=== PATIENT | female | born 1985 | race African-American/Black ===

== ENCOUNTER 2021-04-19 11:24 | Emergency (ER) | payer MEDICARE, SELFPAY | END 2021-04-19 13:15 | disposition home or self-care (01) | LOC: CSHERS 11:24 | DX: B34.9 Viral infection, unspecified (principal) | CPT/HCPCS: 71045 ==

== ENCOUNTER 2021-11-13 07:13 | Emergency (ER) | payer MEDICARE, MEDICAID ==
[2021-11-13] MEDS ORDERED: Dexamethasone 10 MG/ML VIAL ONE (07:54)
[2021-11-13] MEDS ORDERED: Metoclopramide HCl 10 MG TAB ONE (07:54)
[2021-11-13] MEDS ORDERED: Dexamethasone 10 MG/ML VIAL SLOW IVP SCH (08:00)
[2021-11-13] MEDS ORDERED: Metoclopramide HCl 10 MG TAB PO SCH (08:00)
== END 2021-11-13 07:58 | disposition home or self-care (01) ==
LOC: CSHERS 07:13
DX: R51.9 Headache, unspecified (principal); Z79.899 Other long term (current) drug therapy
CPT/HCPCS: 99283; J1100

== ENCOUNTER 2021-12-05 22:53 | Emergency (ER) | payer MEDICARE, MEDICAID | END 2021-12-06 01:52 | disposition left against medical advice (07) | LOC: CSHERS 22:53 | DX: Z53.21 Procedure and treatment not carried out due to patient leaving prior to being seen by health care provider (principal) ==

== ENCOUNTER 2021-12-06 06:28 | Emergency (ER) | payer MEDICARE, MEDICAID ==
[2021-12-06] MEDS ORDERED: Dexamethasone 10 MG/ML VIAL ONE (07:18)
[2021-12-06 08:35] LABS: BHCG - Serum Negative (NEGATIVE); Pregs Control Background? CLEAR/WHITE (CLR/WHITE); Pregs Control Bar Appear? YES (CONTROL BAR)
[2021-12-06 08:42] LABS: ALT (SGPT) 38 U/L (8-55); AST (SGOT) 27 U/L (5-34); Albumin 3.8 g/dL (3.5-5.0); Alkaline Phosphatase 77 U/L (40-110); Anion Gap 13 mmol/L (10-20); BUN (Urea Nitrogen) 11 mg/dL (7.0-18.7); Bilirubin, Total 0.4 mg/dL (0.2-1.2); Calc. Creatinine Clearance 0 mL/min (70-130); Calcium 9.3 mg/dL (7.8-10.44); Carbon Dioxide 27 mmol/L (22-29); Chloride 102 mmol/L (98-107); Estimated GFR 80; Glucose 96 mg/dL (70-105); Potassium 3.9 mmol/L (3.5-5.1); Protein, Total 7.8 g/dL (6.0-8.3); Sodium 138 mmol/L (136-145)
[2021-12-06 08:45] LABS: Hemoglobin 13.2 g/dL (12.0-15.5); Mean Corpuscular HGB CONC 34.2 g/dL (32.0-36.0); Mean Corpuscular Hemoglobin 29.9 pg (27.0-33.0); Mean Corpuscular Volume 87.5 fl (81.6-98.3); Mean Platelet Volume 10.5 fl (7.4-10.4); Platelet Count 340 10x3/uL (150-450); RBC Distribution Width 12.7 % (11.5-14.5); Red Blood Cell (RBC) Count 4.41 10x6/uL (3.90-5.03); White Blood Cell (WBC) Count 4.1 10x3/uL (3.5-10.5)
[2021-12-06 09:27] LABS: Band 2 % (5-11); Eosinophils 2 % (0-10); Monocytes 15 % (0-10)
[2021-12-06 09:28] LABS: Lymphocytes 20 % (21-51); Neutrophil 57 % (42-75)
[2021-12-06 09:29] LABS: MDiff Complete? YES; Platelet Morphology Comment Appears Adequate; Reactive Lymphocytes 4 % (0-10)
[2021-12-06 09:30] LABS: RBC Morphology Normal
== END 2021-12-06 09:31 | disposition home or self-care (01) ==
LOC: CSHERS 06:28
DX: U07.1 COVID-19 (principal); I49.1 Atrial premature depolarization; J03.90 Acute tonsillitis, unspecified
CPT/HCPCS: 71045; 80053; 84484; 84703; 85025; 85379; 87081; 87430; 93005; U0003; U0005; 36415; J1100

== ENCOUNTER 2022-07-18 10:47 | Emergency (ER) | payer MEDICAID, MEDICARE ==
[2022-07-18 11:39] LABS: #Eosinphils 0.2 10x3/uL (0.0-0.5); #Monocytes 0.6 10x3/uL (0.0-1.1); #Neutrophils 3.6 10x3/uL (1.5-8.4); %Basophils 0.6 % (0.0-2.0); %Eosinophils 2.2 % (0.0-6.0); %Lymphocytes 38.2 % (18.0-47.0); %Monocytes 8.7 % (0.0-10.0); Hemoglobin 12.8 g/dL (12.0-15.5); Mean Corpuscular HGB CONC 32.8 g/dL (32.0-36.0); Mean Corpuscular Hemoglobin 29.1 pg (27.0-33.0); Mean Corpuscular Volume 88.6 fl (81.6-98.3); Mean Platelet Volume 10.4 fl (7.4-10.4); Platelet Count 382 10x3/uL (150-450); White Blood Cell (WBC) Count 7.3 10x3/uL (3.5-10.5)
[2022-07-18 11:50] LABS: Bilirubin Neg (Negative); Blood, Urine 250 (Negative); Clarity Slightly Cloudy (Clear); Glucose, Urine (Dipstick) Normal (Negative); Ketone, Urine Negative (Negative); Leukocyte 500 (Negative); Nitrite Negative (Negative); Protein, Urine (Dipstick) 100 mg/dl (Neg-Trace); Urobilinogen Normal mg/dL (Less than 2); pH, Urine 6.5 (5.0-9.0)
[2022-07-18 11:53] LABS: Pregnancy Test - Urine (BHCG) Negative (Negative); Pregu Control Background? CLEAR/WHITE (CLR/WHITE); Pregu Control Bar Appear? YES (CONTROL BAR)
[2022-07-18 11:56] LABS: Amphetamine Not Detected (NotDetected); Barbiturates Screen Not Detected (NotDetected); Benzodiazepine Screen Not Detected (NotDetected); Cocaine Metabolite Screen Not Detected (NotDetected); Methadone Not Detected (NotDetected); Methamphetamine Not Detected (NotDetected); Opiate Screen Not Detected (NotDetected); Oxycodone Screen Not Detected (NotDetected); Phencyclidine (PCP) Not Detected (NotDetected); THC/Cannabinoid Screen Not Detected (NotDetected); Tricyclic Screen Not Detected (NotDetected)
[2022-07-18 12:02] LABS: Trichomonas/HPF 1+ HPF (None Seen)
[2022-07-18 12:03] LABS: Bacteria/HPF 2+ HPF (None Seen)
[2022-07-18 12:05] LABS: Acetaminophen Less than 10.0 mcg/mL (10.0-30.0); Alcohol Less than 10 mg/dL (Less than 10); Salicylate Less than 8.0 mg/dL (15.0-30.0)
[2022-07-18 12:06] LABS: ALT (SGPT) 34 U/L (8-55); AST (SGOT) 33 U/L (5-34); Albumin 4.4 g/dL (3.5-5.0); Alkaline Phosphatase 77 U/L (40-110); Anion Gap 14 mmol/L (10-20); BUN (Urea Nitrogen) 15 mg/dL (7.0-18.7); Bilirubin, Total 0.3 mg/dL (0.2-1.2); Calc. Creatinine Clearance 0 mL/min (70-130); Calcium 9.9 mg/dL (7.8-10.44); Carbon Dioxide 25 mmol/L (22-29); Chloride 102 mmol/L (98-107); Estimated GFR 75; Globulin 4.2 g/dL (2.4-3.5); Glucose 106 mg/dL (70-105); Potassium 4.1 mmol/L (3.5-5.1); Protein, Total 8.6 g/dL (6.0-8.3); Sodium 137 mmol/L (136-145)
[2022-07-18 12:08] LABS: Mucous/LPF 2+ LPF (<2+)
[2022-07-18] MEDS ORDERED: OLANZapine 2.5 MG TAB ONE (12:28)
[2022-07-18] MEDS ORDERED: Ondansetron ODT 4 MG TAB ONE ×2 (13:33→15:08)
[2022-07-18] MEDS ORDERED: metroNIDAZOLE 500 MG TAB ONE (13:33)
[2022-07-18] MEDS ORDERED: Haloperidol Lactate 5 MG/ML VIAL ONE (17:50)
[2022-07-18] MEDS ORDERED: Lorazepam 2 MG/ML VIAL ONE (17:50)
[2022-07-18 18:10] LABS: SARS-CoV-2 NAA Rapid Test Not Detected (NotDetected)
[2022-07-18] MEDS ORDERED: Lorazepam 1 MG TAB ONE (18:55)
[2022-07-18] MEDS ORDERED: diphenhydrAMINE 25 MG CAP ONE (18:56)
[2022-07-18] MEDS ORDERED: Haloperidol 5 MG TAB PO SCH (19:00)
== END 2022-07-18 20:33 ==
LOC: CSHERS 10:47
DX: F23 Brief psychotic disorder (principal); F22 Delusional disorders; A59.9 Trichomoniasis, unspecified; Z20.822 Contact with and (suspected) exposure to COVID-19; I10 Essential (primary) hypertension; Z79.899 Other long term (current) drug therapy
CPT/HCPCS: 80053; 80306; 80307; 81025; 85025; 99285; U0002; 36415; 81003; 81015; J1630; J2060; Q0162

== ENCOUNTER 2023-01-27 08:00 | Emergency (ER) | payer MEDICARE ==
[2023-01-27 09:51] LABS: #Basophils 0.1 10x3/uL (0.0-0.2); #Monocytes 0.6 10x3/uL (0.0-1.1); #Neutrophils 3.6 10x3/uL (1.5-8.4); %Basophils 0.9 % (0.0-2.0); %Lymphocytes 34.8 % (18.0-47.0); %Monocytes 8.8 % (0.0-10.0); %Neutrophils 55.3 % (40.0-75.0); Hematocrit 37.7 % (34.9-44.5); Hemoglobin 12.2 g/dL (12.0-15.5); Mean Corpuscular HGB CONC 32.4 g/dL (32.0-36.0); Mean Corpuscular Hemoglobin 28.9 pg (27.0-33.0); Mean Corpuscular Volume 89.3 fl (81.6-98.3); Mean Platelet Volume 10.2 fl (7.4-10.4); Platelet Count 410 10x3/uL (150-450); RBC Distribution Width 13.1 % (11.5-14.5); Red Blood Cell (RBC) Count 4.22 10x6/uL (3.90-5.03); White Blood Cell (WBC) Count 6.5 10x3/uL (3.5-10.5)
[2023-01-27 09:56] LABS: Bilirubin Neg (Negative); Blood, Urine 25 (Negative); Clarity Slightly Cloudy (Clear); Glucose, Urine (Dipstick) Normal (Negative); Ketone, Urine Negative (Negative); Leukocyte 500 (Negative); Nitrite Negative (Negative); Protein, Urine (Dipstick) 15 mg/dl (Neg-Trace); Urobilinogen Normal mg/dL (Less than 2); pH, Urine 6.5 (5.0-9.0)
[2023-01-27 10:02] LABS: Amphetamine Not Detected (NotDetected); Barbiturates Screen Not Detected (NotDetected); Benzodiazepine Screen Not Detected (NotDetected); Cocaine Metabolite Screen Not Detected (NotDetected); Methadone Not Detected (NotDetected); Methamphetamine Not Detected (NotDetected); Opiate Screen Not Detected (NotDetected); Oxycodone Screen Not Detected (NotDetected); Phencyclidine (PCP) Not Detected (NotDetected); THC/Cannabinoid Screen Not Detected (NotDetected); Tricyclic Screen Not Detected (NotDetected)
[2023-01-27 10:04] LABS: Pregnancy Test - Urine (BHCG) Negative (Negative); Pregu Control Background? CLEAR/WHITE (CLR/WHITE); Pregu Control Bar Appear? YES (CONTROL BAR)
[2023-01-27 10:09] LABS: Bacteria/HPF 2+ HPF (None Seen); CAUTI Indications for Culture Alt mental st,lethar; Trichomonas/HPF Rare HPF (None Seen); Yeast-Budding Rare HPF (None Seen)
[2023-01-27 10:11] LABS: Urine Culture Reflex Yes Yes
[2023-01-27 10:11] LABS: Acetaminophen Less than 10 mcg/mL (10.0-30.0); Alcohol Less than 10.0 mg/dL (Less than 10); Salicylate Less than 8.0 mg/dL (15.0-30.0)
[2023-01-27 10:12] LABS: ALT (SGPT) 67 U/L (8-55); AST (SGOT) 62 U/L (5-34); Albumin 4.2 g/dL (3.5-5.0); Alkaline Phosphatase 86 U/L (40-110); Anion Gap 14 mmol/L (10-20); BUN (Urea Nitrogen) 17 mg/dL (7.0-18.7); Bilirubin, Total 0.3 mg/dL (0.2-1.2); Calc. Creatinine Clearance 0 mL/min (70-130); Calcium 9.7 mg/dL (7.8-10.44); Carbon Dioxide 25 mmol/L (22-29); Chloride 102 mmol/L (98-107); Estimated GFR 83; Globulin 3.6 g/dL (2.4-3.5); Glucose 103 mg/dL (70-105); Potassium 4.1 mmol/L (3.5-5.1); Protein, Total 7.8 g/dL (6.0-8.3); Sodium 137 mmol/L (136-145)
== END 2023-01-27 10:40 | disposition home or self-care (01) ==
LOC: CSHERS 08:00
DX: N39.0 Urinary tract infection, site not specified (principal); R53.83 Other fatigue; I10 Essential (primary) hypertension
CPT/HCPCS: 80053; 80306; 80307; 81001; 81025; 85025; 87077; 87086; 93005

== ENCOUNTER 2023-01-30 08:35 | Emergency (ER) | payer MEDICARE | END 2023-01-30 09:46 | disposition home or self-care (01) | LOC: CSHERS 08:35 | DX: R53.83 Other fatigue (principal); G47.00 Insomnia, unspecified; T43.016A Underdosing of tricyclic antidepressants, initial encounter; I10 Essential (primary) hypertension | CPT/HCPCS: 99283 ==